=== PATIENT | male | born 1990 | race African-American/Black ===

== ENCOUNTER 2016-10-15 03:49 | Emergency (ER) | payer OTHER ==
[~2016-10-15] VITALS: Ht 185.4 cm; Wt 107.8 kg
[~2016-10-15 03:49] MED LIST: CLON.2 PO
[2016-10-15 03:57] VITALS: PULSE 70; RESP 14; TEMP 97.7; O2SAT 99
[2016-10-15 04:07] VITALS: BP 164/95; PULSE 70; RESP 18; TEMP 97.7; O2SAT 99
[2016-10-15] MEDS ORDERED: DOXY100T PO (04:59)
[2016-10-15] MEDS ORDERED: BACT800T5 PO (04:59)
--- NOTE | 2016-10-15 05:03 | PD ---
HPI Chief Complaint: Skin Problem Time Seen by Provider: 04:54 Travel History International Travel<30 days: No Contact w/Intl Traveler<30days: No Traveled to known affect area: No History of Present Illness HPI The patient is a 26-year-old male that noticed a lump on his right axilla for 3 days. The lump is slightly painful. He does use occasional antiperspirants and sprays underneath the arms and does occasionally shave his axillae. He has no problem with the left axilla. PFSH Past Medical History Diminished Hearing: No Hypertension: Yes Immunizations Current: Yes Tetanus Vaccination: < 5 Years Influenza Vaccination: Yes Social History Alcohol Use: No Tobacco Use: No Substance Use: No Allergies-Medications (Allergen,Severity, Reaction): Coded Allergies: *MDRO Multi-Drug Resistant Organism (Verified Adverse Reaction, Unknown, ) MRSA (knee) - 01/06/2016 Reported Meds & Prescriptions Reported Meds & Active Scripts Active No Active Prescriptions or Reported Medications Review of Systems Except as stated in HPI: all other systems reviewed are Neg Physical Exam Narrative GENERAL: The patient is alert, oriented 3 in minimal apparent distress with his right hidradenitis suppurativa. His vital signs show blood pressure 164/95 but otherwise normal. SKIN: Focused skin assessment warm/dry. The right axilla shows a 1 x 8 mm slightly tender hard lump that is not fluctuant and minimal associated inflammation. HEAD: Atraumatic. Normocephalic. EYES: Pupils equal and round. No scleral icterus. No injection or drainage. ENT: No nasal bleeding or discharge. Mucous membranes pink and moist. NECK: Trachea midline. No JVD. CARDIOVASCULAR: Regular rate and rhythm. No murmur appreciated. RESPIRATORY: No accessory muscle use. Clear to auscultation. Breath sounds equal bilaterally. GASTROINTESTINAL: Abdomen soft, non-tender, nondistended. Hepatic and splenic margins not palpable. MUSCULOSKELETAL: No obvious deformities. No clubbing. No cyanosis. No edema. NEUROLOGICAL: Awake and alert. No obvious cranial nerve deficits. Motor grossly within normal limits. Normal speech. PSYCHIATRIC: Appropriate mood and affect; insight and judgment normal. Data Data Last Documented VS Vital Signs Date Time Temp Pulse Resp B/P Pulse Ox O2 Delivery O2 Flow Rate FiO2 10/15/16 04:10 70 18 10/15/16 04:07 97.7 164/95 99 [facility] Medical Decision Making Medical Screen Exam Complete: Yes Emergency Medical Condition: Yes Medical Record Reviewed: Yes Differential Diagnosis Hidradenitis suppurativa with abscess, hidradenitis suppurativa without abscess , lymph node, tumorunlikely Narrative Course The patient has hidradenitis suppurativa without abscess. Plan: The patient be given Bactrim DS along with doxycycline both taken twice daily for 10 days. He should endeavor to avoid antiperspirants, underarm sprays and should try to stay cool and perspire as minimally as possible. Diagnosis Primary Impression: Hidradenitis suppurativa of right axilla Additional Instructions: Both antibiotics are taken twice daily for 10 days. Avoid hot areas and sweating is much as possible. Avoid underarm antiperspirants/sprays. Follow- up with a primary care physician next week. Med/Other Pt SpecificInfo: Prescription(s) given Scripts Doxycycline Hyclate 100 Mg [id number] Mg PO BID 10 Days Prov:Alessandro Tello MD 10/15/16 Sulfamethoxazole-Trimethoprim (Bactrim DS)800-160 Mg Tab1 Tab PO BID #20 TAB Ref 0 Prov:Alessandro Tello MD 10/15/16 Disposition: 01 DISCHARGE HOME Condition: Stable Alessandro Tello MD October 15, 2016 05:03
[2016-10-15 05:13] VITALS: BP 175/92
== END 2016-10-15 05:17 | disposition home or self-care (01) ==
LOC: PHED 03:49
DX: L73.2 Hidradenitis suppurativa (principal); I10 Essential (primary) hypertension
CPT/HCPCS: 99282

== ENCOUNTER 2016-11-23 05:19 | Emergency (ER) | payer OTHER ==
[~2016-11-23] VITALS: Ht 185.4 cm; Wt 108.9 kg
[~2016-11-23 05:19] MED LIST changes: +BACT800T5 PO; -CLON.2 PO; +DOXY100T PO
[2016-11-23 05:29] VITALS: BP 158/109; PULSE 70; RESP 18; TEMP 98.3; O2SAT 98
[2016-11-23 05:43] VITALS: BP 183/105; PULSE 78; RESP 16; O2SAT 98
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
[2016-11-23] MEDS ORDERED: ONDANSETRON HCL 4 MG/2 ML VIAL IV PUSH ONE (06:00)
[2016-11-23] MEDS ORDERED: KETOROLAC TROMETHAMINE 30 MG/ML (IVP) VIAL IV PUSH ONE (06:00)
[2016-11-23] MEDS ORDERED: cloNIDine HCL 0.2 MG TAB PO ONE (06:00)
[2016-11-23 06:28] VITALS: BP 166/85; PULSE 69; O2SAT 99
[2016-11-23] MEDS ORDERED: CLON0.1T PO (06:53)
[2016-11-23] MEDS ORDERED: AMLO5 PO (06:53)
[2016-11-23 07:00] VITALS: BP 156/74; PULSE 95; RESP 18; O2SAT 99
[2016-12-02] MEDS ORDERED: HYDR-3580 PO (13:03)
[2016-12-02] MEDS ORDERED: CLIN1CAP5 PO (13:03)
== END 2016-11-23 07:24 | disposition home or self-care (01) ==
LOC: PHED 05:19
DX: G44.209 Tension-type headache, unspecified, not intractable (principal); I10 Essential (primary) hypertension
CPT/HCPCS: 96374; 96375; 99284; J1885; J2405

== ENCOUNTER 2017-11-19 12:55 | Emergency (ER) | payer SELFPAY ==
[~2017-11-19] VITALS: Ht 182.9 cm; Wt 107.2 kg
[~2017-11-19 12:55] MED LIST changes: +AMLO5 PO; -BACT800T5 PO; +CLIN150C14 PO; -DOXY100T PO; +HYDR-3580 PO
[2017-11-19 13:01] VITALS: BP 170/99; PULSE 76; RESP 16; TEMP 98.2; O2SAT 98
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
[2017-11-19] MEDS ORDERED: ONDANSETRON ODT 4 MG TAB PO ONE (13:30)
[2017-11-19] MEDS ORDERED: KETOROLAC TROMETHAMINE 30 MG/ML (IVP) VIAL IV PUSH ONE (13:30)
[2017-11-19] MEDS ORDERED: amLODIPine BESYLATE 5 MG TAB PO ONE (13:30)
[2017-11-19 13:53] VITALS: BP 168/98; PULSE 64; RESP 18; O2SAT 98
[2017-11-19] MEDS ORDERED: KETOROLAC TROMETHAMINE 60 MG/2 ML (IM) VIAL IM ONE (14:00)
[2017-11-19] MEDS ORDERED: TYLE325T PO (14:37)
[2017-11-19] MEDS ORDERED: AMLO5TAB2 PO (14:37)
[2017-11-19 14:45] VITALS: BP 141/74; PULSE 61; RESP 17; O2SAT 98
[2017-11-19 14:50] VITALS: RESP 18
[2017-11-19 15:24] VITALS: BP 130/66
== END 2017-11-19 15:27 | disposition home or self-care (01) ==
LOC: PHED 12:55
DX: R51 Headache (principal); I10 Essential (primary) hypertension; Z91.14 Patient's other noncompliance with medication regimen
CPT/HCPCS: 96372; 99283; J1885